=== PATIENT | female | born 1965 | race Caucasian/White ===

== ENCOUNTER → 2017-07-27 | Outpatient (CLI) | payer BC ==
--- NOTE | 2017-07-27 20:18 | XR ---
EXAMINATION TYPE: XR chest 2V DATE OF EXAM: 07/27/2017 COMPARISON: Previous exam 06/25/2013 HISTORY: Pneumonia, cough, bronchitis TECHNIQUE: Frontal and lateral views of the chest are obtained on 3 images. FINDINGS: There is no pleural effusion or pneumothorax seen. Basilar airspace disease is suspected a lthough there are differences in 2 of the frontal views. The cardiac silhouette size is within normal limits. The osseous structures are intact. IMPRESSION: Difficult to exclude a right lower lobe pneumonia. Follow-up as indicated.
== END | disposition home or self-care (01) ==
LOC: RADXRYALE 10:06
PROVIDERS: ATTEND Internal Medicine
DX: J20.9 Acute bronchitis, unspecified (principal)
CPT/HCPCS: 71046